=== PATIENT | male | born 1950 | race Caucasian/White ===

== ENCOUNTER 2024-01-17 19:48 | Inpatient (IN) | payer MEDICARE, OTHER ==
[~2024-01-17] VITALS: Ht 185.4 cm; Wt 65.8 kg
[~2024-01-17 19:48] MED LIST: [UNRECOGNIZED DRUG - REMARK]
[2024-01-17 20:24] VITALS: BP 178/114; PULSE 104; RESP 16; TEMP 97.2; O2SAT 97
[2024-01-17 21:25] LABS: BASOPHILS % (AUTO) 0.3 % (0.0-2.0); EOSINOPHILS % (AUTO) 0.1 % (0.0-4.0); HEMOGLOBIN 13.2 g/dL (12.0-18.0); LYMPHOCYTES # (AUTO) 0.5 K/uL (2.0-11.5); MEAN CORPUSCULAR HEMOGLOBIN 32 pg (27-31); MEAN CORPUSCULAR HGB CONC 34 g/dL (33-37); MEAN CORPUSCULAR VOLUME 93.4 fL (80-94); MONOCYTES # (AUTO) 0.5 K/uL (0.8-1.0); MONOCYTES % (AUTO) 6.6 % (1.7-9.3); NEUTROPHILS # (AUTO) 6.7 K/uL (1.8-7.7); NEUTROPHILS % (AUTO) 86.4 % (42.2-75.2); PLATELET COUNT (AUTO) 160 K/uL (140-450); RED BLOOD CELL COUNT(AUTO) 4.18 MIL/uL (4.20-6.10); RED CELL DISTRIBUTION WIDTH 15.5 % (11.6-13.7); WHITE BLOOD COUNT (AUTO) 7.7 K/uL (4.8-10.8)
[2024-01-17 21:35] LABS: ANION GAP 10.2 (8-16); CALCIUM 8.5 mg/dL (8.5-10.1); CARBON DIOXIDE 29.1 mmol/L (21-32); CHLORIDE 99 mmol/L (98-107); CREATININE 1.9 mg/dL (0.6-1.3); GLUCOSE 132 mg/dL (74-106); POTASSIUM 4.3 mmol/L (3.5-5.1); SODIUM SERUM 134 mmol/L (136-145); UREA NITROGEN, BLOOD 26 mg/dL (7-18)
[2024-01-17 21:37] LABS: INR 1.12 (0.8-1.2); PARTIAL THROMBOPLASTIN TIME 32.2 secs (22-35.6); PROTHROMBIN TIME 11.7 secs (10.8-13.4)
[2024-01-17 21:41] LABS: LYMPHOCYTES % (AUTO) 6.6 % (20.5-51.1)
[2024-01-17 21:52] LABS: ALANINE AMINOTRANSFERASE 29 U/L (12-78); ALBUMIN 3.6 g/dL (3.4-5.0); ALKALINE PHOSPHATASE 75 U/L (50-136); ASPARTATE AMINOTRANSFERASE 27 U/L (15-37); BILIRUBIN,DIRECT 0.1 mg/dL (0.0-0.3); LIPASE 33 U/L (16-77); TOTAL BILIRUBIN 0.7 mg/dL (0.0-1.0); TOTAL PROTEIN, SERUM 6.8 g/dL (6.4-8.2)
[2024-01-17] MEDS: NACL 0.9% 1,000 ML IV ONE (22:59)
[2024-01-17] MEDS: MORPHINE SULFATE 4 MG/ML SYR IVP ONE (23:09)
[2024-01-18 01:12] LABS: BILIRUBIN,URINE NEGATIVE (NEGATIVE); BLOOD, URINE 3+ (NEGATIVE); COLOR,URINE YELLOW (YELLOW); LEUKOCYTE ESTERASE ,URINE TRACE (NEGATIVE); NITRITE, URINE NEGATIVE (NEGATIVE); PROTEIN,URINE 2+ (NEGATIVE); UGLUCOSE NEGATIVE (NEGATIVE); UROBILINOGEN,URINE 0.2 EU/dL (0.2 - 1)
[2024-01-18 01:13] LABS: APPEARANCE,URINE SLIGHTLY HAZY (CLEAR)
[2024-01-18 01:18] LABS: BACTERIA,URINE 2+ /HPF (None Seen); MUCUS,URINE None Seen /LPF (None Seen); SQUAMOUS EPITHELIAL CELL,UR 0-3 (FEW) /LPF (0-3 (FEW)); WBC,URINE 0-5 /HPF (0-5)
[2024-01-18] MEDS ORDERED: cefTRIAXone 1,000 MG VIAL ONE (02:17)
[2024-01-18] MEDS ORDERED: ONDANSETRON 4 MG/2 ML VIAL IVP PRN (03:15)
[2024-01-18] MEDS ORDERED: ACETAMINOPHEN 325 MG TAB PO PRN (03:15)
[2024-01-18] MEDS ORDERED: MORPHINE SULFATE 2 MG/ML SYR IVP PRN (03:15)
[2024-01-18] MEDS: NACL 0.9% 1,000 ML IV SCH (04:09)
[2024-01-18] MEDS: ENOXAPARIN 40 MG/0.4 ML SYR SUBQ SCH (09:30)
[2024-01-18 10:00] VITALS: BP 124/66; PULSE 65; RESP 12; RESP 18; TEMP 98.6; O2SAT 97
[2024-01-18] MEDS: TAMSULOSIN 0.4 MG CAP PO SCH (13:18)
[2024-01-18 13:32] LABS: CALCIUM 8.4 mg/dL (8.5-10.1); CARBON DIOXIDE 25.8 mmol/L (21-32); CHLORIDE 101 mmol/L (98-107); CREATININE 1.6 mg/dL (0.6-1.3); GLUCOSE 138 mg/dL (74-106); POTASSIUM 3.8 mmol/L (3.5-5.1); SODIUM SERUM 136 mmol/L (136-145); UREA NITROGEN, BLOOD 21 mg/dL (7-18)
[2024-01-18] MEDS: HYDROcodone/APAP 5/325 MG 1 TAB TAB PO PRN (13:55)
[2024-01-18] MEDS ORDERED: ACET-9525 PO (18:20)
[2024-01-18] MEDS ORDERED: TAMS0.4C96 PO (18:20)
[2024-01-18 18:26] VITALS: BP 124/66; PULSE 65; RESP 12; TEMP 98.6
== END 2024-01-18 19:00 | disposition home or self-care (01) | DRG 690 ==
LOC: MED 19:48 → MTU 01-18 03:15
PROVIDERS: ADMIT Hospitalist; ATTEND Hospitalist
DX: N13.6 Pyonephrosis (principal); N17.0 Acute kidney failure with tubular necrosis; K59.00 Constipation, unspecified; Z79.899 Other long term (current) drug therapy
CPT/HCPCS: 36415; 71045; 80048; 80076; 81001; 83690; 83880; 84484; 85025; 85610; 85730; 87040; 87081; 93005; 96361; 96365; 96375; 99285; J0696; J1650; J2270; J7060; Q0092